=== PATIENT | male | born 1985 | race Asian ===

== ENCOUNTER → 2024-11-08 14:45 | Outpatient (REF) | payer OTHER, SELFPAY | LOC: HWRAD 14:45 | PROVIDERS: ATTENDING PHYSICIAN Physician Assistant Medical; FAMILY PHYSICIAN Physician Assistant Medical | DX: E65 Localized adiposity (principal) | CPT/HCPCS: 76536 ==

== ENCOUNTER → 2025-04-10 11:18 | Outpatient (REF) | payer OTHER, SELFPAY | LOC: HWRAD 11:18 | PROVIDERS: ATTENDING PHYSICIAN Physician Assistant Medical | DX: M89.8X9 Other specified disorders of bone, unspecified site (principal) | CPT/HCPCS: 72050 ==